=== PATIENT | female | born 1975 | race Asian ===

== ENCOUNTER 2018-04-25 21:54 | Emergency (ER) | payer OTHER ==
[~2018-04-25] VITALS: Ht 167.6 cm; Wt 72.6 kg
[2018-04-25 22:35] LABS: PLATELET COUNT 176 K/uL (152-353)
[2018-04-25 22:43] LABS: SODIUM 141 mmol/L (136-145)
[2018-04-26 00:03] VITALS: BP 122/71; TEMP 98.1
== END 2018-04-26 00:10 | disposition home or self-care (01) ==
LOC: ED 21:54
DX: R07.89 Other chest pain (principal)
CPT/HCPCS: 36415; 80053; 82150; 82550; 82553; 83690; 84484; 85027; 93005; 99283

== ENCOUNTER 2019-04-26 15:28 | Emergency (ER) | payer OTHER ==
[~2019-04-26] VITALS: Ht 167.6 cm; Wt 72.6 kg
[2019-04-26 15:54] VITALS: TEMP 98.1
[2019-04-26 17:25] VITALS: BP 126/76
== END 2019-04-26 17:20 | disposition home or self-care (01) ==
LOC: ED 15:28
DX: J09.X2 Influenza due to identified novel influenza A virus with other respiratory manifestations (principal)
CPT/HCPCS: 87502; 87651; 99282; 99283